=== PATIENT | female | born 1985 | race Two or more races ===

== ENCOUNTER 2017-04-27 14:22 | Emergency (ER) | payer OTHER ==
[2017-04-27 14:29] VITALS: BP 130/76; PULSE 90; TEMP 98.3; BMI 18.5
[2017-04-27] MEDS ORDERED: DIPHTH,PERTUSS(ACELL),TET 0.5 ML DISP.SYRIN IM ONE (14:29)
--- NOTE | 2017-04-27 14:29 | PDOC ---
Rapid Medical Evaluation Chief Complaint: Headache Time Seen by Provider: 04/27/17 14:27 Medical Evaluation: Allergies Allergy/AdvReac Type Severity Reaction Status Date / Time No Known Allergies Allergy Verified 04/27/17 14:25 04/27/17 14:27 The patient presents with a chief complaint of: headache, laceration to R mu-ism after hitting head on sink corner. No LOC. Does not remember date of last tetanus shot I have performed a brief in-person evaluation of this patient; Pertinent physical exam findings. 1cm lac to the R mu-ism with small hematoma I have ordered the following: Boostrix vaccine The patient will proceed to the ED for further evaluation.
[2017-04-27] MEDS ORDERED: ACETAMINOPHEN 500 MG TABLET (FP) PO ONE (15:34)
--- NOTE | 2017-04-27 15:34 | PDOC ---
History of Present Illness - General Chief Complaint: Headache Stated Complaint: HEAD INJURY Time Seen by Provider: 04/27/17 14:27 History Source: Patient Exam Limitations: No Limitations - History of Present Illness Initial Comments: 04/27/17 16:07 My chief complaint: Fall laceration to right temporal scalp area History of present illness: Patient is a 32 year old female with no significant medical history here today after tripping on the dog falling and hitting right temporal scalp area on the corner of a stove sustaining a superficial laceration to the area. Patient denies any loss of consciousness, any nausea, vomiting, dizziness, change in vision or level of alertness or any hemotympanum. Patient is unsure of her tetanus status will update today. Patient reports having tenderness around laceration site that is throbbing in nature. Timing/Duration: reports: waxing and waning Severity: Yes: moderate Associated Symptoms: reports: other (pain at site of laceration rt. temporal ) Past History - Past Medical History Allergies/Adverse Reactions: Allergies Allergy/AdvReac Type Severity Reaction Status Date / Time No Known Allergies Allergy Verified 04/27/17 14:25 Home Medications: Ambulatory Orders NK [No Known Home Medication] 04/27/17 Asthma: No Cancer: No Cardiac Disorders: No COPD: No Diabetes: No HTN: No Seizures: No Thyroid Disease: No - Reproductive History (#): 4 Para: 1 Cervical CA: No Dysfunctional Uterine Bleeding: No Ectopic : No Endometrial CA: No Polycystic Ovaries: No Therapeutic (s) & number: No Tubal Ligation: No Spontaneous : 3 - Suicide/Smoking/Psychosocial Hx Smoking History: Never smoked Have you smoked in the past 12 months: Yes Number of Cigarettes Smoked Daily: 3 If you are a former smoker, when did you quit?: 3 weeks ago Information on smoking cessation initiated: Yes 'Breaking Loose' booklet given: 04/27/17 Hx Alcohol Use: No Drug/Substance Use Hx: No Substance Use Type: None Hx Substance Use Treatment: No Review of Systems - Review of Systems Able to Perform ROS?: Yes Constitutional: No: Symptoms Reported HEENTM: No: Symptoms Reported Respiratory: No: Symptoms reported Cardiac (ROS): No: Symptoms Reported ABD/GI: No: Symptoms Reported Musculoskeletal: No: Symptoms Reported Integumentary: Yes: Other (laceration rt. temporal scalp ) Neurological: Yes: Other (tenderness around laceration site) *Physical Exam - Vital Signs Last Vital Signs Temp Pulse Resp BP Pulse Ox 98.3 F 90 18 130/76 100 04/27/17 14:27 04/27/17 14:27 04/27/17 14:27 04/27/17 14:27 04/27/17 14:27 - Physical Exam General Appearance: Yes: Appropriately Dressed HEENT: positive: EOMI, CASS, Normal ENT Inspection Neck: negative: Tender, Lymphadenopathy (R), Lymphadenopathy (L), Rigidity, Tender lateral, Tender midline Respiratory/Chest: positive: Lungs Clear, Normal Breath Sounds. negative: Chest Tender, Respiratory Distress Cardiovascular: positive: Regular Rhythm, Regular Rate, S1, S2 Integumentary: positive: Other (laceration superficial rt. temporal scalp area approx 4 cm x 0.25 cm ) Neurologic: positive: public improvement inspector II-XII NML intact, Fully Oriented, Alert, Respond to painful stimul, Responsive. negative: Numbness, Sensory Deficit Procedures - Consent Consent obtained: From Patient - Laceration/Wound Repair Right Head Wound Length: to 2.5 cm Wound Explored: clean Wound's Depth, Shape: superficial, linear Irrigated w/ Saline: Yes Betadine Prep: Yes Anesthesia: 1% Lidocaine Amount of Anesthetic (ccs): 3 Wound Repaired With: Sutures Suture Size/Type: 6:0 Number of Sutures: 6 Sterile Dressing Applied: No ED Treatment Course - Medications Given in the ED: ED Medications Discontinued Medications Generic Name Dose Route Start Last Admin Trade Name Freq PRN Reason Stop Dose Admin Diphtheria/Tetanus/Acell Pertussis 0.5 ml 04/27/17 14:29 04/27/17 15:06 Boostrix - IM 04/27/17 14:30 0.5 ml .ONCE ONE Administration Medical Decision Making - Medical Decision Making 04/27/17 16:11 Patient is a 32 year old female with no significant medical history here today after tripping on the dog falling and hitting right temporal scalp area on the corner of a stove sustaining a superficial laceration to the area. Patient denies any loss of consciousness, any nausea, vomiting, dizziness, change in vision or level of alertness or any hemotympanum. Patient is unsure of her tetanus status will update today. Patient reports having tenderness around laceration site that is throbbing in nature. RT. TEMPORAL SCALP HEAD INJURY CLOSED RT. TEMPORAL SCALP LACERATION PLAN; TDAP ORDERED IN [facility] ACETAMINOPHEN 1000 MG PO NOW 6 INTERRUPTED SUTURES RT. TEMPORAL SCALP *DC/Admit/Observation/Transfer Diagnosis at time of Disposition: Laceration of head Qualifiers: Encounter type: initial encounter Location of open wound of head: scalp Foreign body presence: without foreign body Qualified Code(s): S01.01XA - Laceration without foreign body of scalp, initial encounter Head injury Qualifiers: Encounter type: initial encounter Qualified Code(s): S09.90XA - Unspecified injury of head, initial encounter - Discharge Dispostion Disposition: HOME Condition at time of disposition: Stable - Referrals - Patient Instructions Additional Instructions: You may take acetaminophen as needed as directed by lawn technician for pain Today your tetanus diphtheria and pertussis vaccine was updated Keep wound dry today and tomorrow may wash gently with antibacterial soap and water pat dry and apply tiny amount of bacitracin ointment Return here in 6-7 days or sooner if any severe headache, nausea, vomiting, dizziness, change in vision, redness around wound or discharge from wound for suture removal Patient voiced understanding of discharge instructions and all questions were answered - Post Discharge Activity
[2017-04-27] MEDS ORDERED: ACETAMINOPHEN 500 MG TABLET (FP) ONE (15:43)
== END 2017-04-27 16:26 | disposition home or self-care (01) ==
LOC: JERFT 14:22
PROC: 0HQ0XZZ Repair Scalp Skin, External Approach (ICD-10-PCS; principal; 2017-04-27)
PROC: 3E0234Z Introduction of Serum, Toxoid and Vaccine into Muscle, Percutaneous Approach (ICD-10-PCS; 2017-04-27)
DX: S01.01XA Laceration without foreign body of scalp, initial encounter (principal); S09.90XA Unspecified injury of head, initial encounter; W01.0XXA Fall on same level from slipping, tripping and stumbling without subsequent striking against object, initial encounter; Y93.K1 Activity, walking an animal; Y92.9 Unspecified place or not applicable; Z87.891 Personal history of nicotine dependence
CPT/HCPCS: 90715; 99281-25

== ENCOUNTER 2017-08-29 00:10 | Emergency (ER) | payer OTHER ==
--- NOTE | 2017-08-29 01:25 | PDOC ---
History of Present Illness - General Chief Complaint: Vaginal Bleeding Stated Complaint: 10 WEEKS , VAG BLEEDING Time Seen by Provider: 08/29/17 01:23 History Source: Patient Exam Limitations: No Limitations - History of Present Illness Initial Comments: 08/29/17 03:22 vag bleeding and abd cramping Timing/Duration: reports: getting worse Quality: reports: moderate, throbbing Abdominal Pain Onset Location: reports: suprapubic Pain Radiation: reports: no radiation Treatment Prior to Arrive: worse with: analgesics Aggravating Factors: improves with: Movement Alleviating Factors: improves with: None Past History - Past Medical History Allergies/Adverse Reactions: Allergies Allergy/AdvReac Type Severity Reaction Status Date / Time No Known Allergies Allergy Verified 08/29/17 01:07 Home Medications: Ambulatory Orders NK [No Known Home Medication] 04/27/17 Asthma: No Cancer: No Cardiac Disorders: No COPD: No Diabetes: No HTN: No Seizures: No Thyroid Disease: No - Reproductive History (#): 4 Para: 1 Cervical CA: No Dysfunctional Uterine Bleeding: No Ectopic : No Endometrial CA: No Polycystic Ovaries: No Therapeutic (s) & number: No Tubal Ligation: No Spontaneous : 3 - Suicide/Smoking/Psychosocial Hx Smoking History: Never smoked Have you smoked in the past 12 months: No Number of Cigarettes Smoked Daily: 0 If you are a former smoker, when did you quit?: 0 Information on smoking cessation initiated: No 'Breaking Loose' booklet given: 08/29/17 Hx Alcohol Use: No Drug/Substance Use Hx: No Substance Use Type: None Hx Substance Use Treatment: No Review of Systems - Review of Systems All Other Systems: Reviewed and Negative *Physical Exam - Vital Signs Last Vital Signs Temp Pulse Resp BP Pulse Ox 98.4 F 80 18 118/72 99 08/29/17 01:08 08/29/17 01:08 08/29/17 01:08 08/29/17 01:08 08/29/17 01:08 - Physical Exam General Appearance: Yes: Nourished Respiratory/Chest: positive: Lungs Clear Cardiovascular: positive: Regular Rate Female Pelvic Exam: positive: cervical os closed, normal adnexa. negative: CMT Gastrointestinal/Abdominal: negative: Tender, Distended Lymphatic: negative: Adenopathy Musculoskeletal: positive: Normal Inspection Extremity: positive: Normal Capillary Refill Integumentary: positive: Normal Color Neurologic: positive: Fully Oriented Medical Decision Making - Medical Decision Making 08/29/17 03:24 pocus: IUP with +FH medical record review: RH+ a/p threatened ab fluids apap ob fu *DC/Admit/Observation/Transfer Diagnosis at time of Disposition: Vaginal bleeding in - Discharge Dispostion Disposition: HOME Condition at time of disposition: Good - Referrals - Patient Instructions Printed Discharge Instructions: DI for Threatened Additional Instructions: Call you OB for follow up in the morning - Post Discharge Activity
[2017-08-29] MEDS ORDERED: ACETAMINOPHEN 500 MG TABLET (FP) PO ONE (01:33)
[2017-08-29 01:39] VITALS: TEMP 98.4; BMI 19.5
[2017-08-29] MEDS ORDERED: ACETAMINOPHEN INJECTION 100 ML IVPB ONE (01:46)
[2017-08-29] MEDS ORDERED: ACETAMINOPHEN 1000 MG/100 ML VIAL (NON FORMULARY) IVPB ONE (01:50)
[2017-08-29 02:50] VITALS: BP 110/72; PULSE 88
== END 2017-08-29 02:51 | disposition home or self-care (01) ==
LOC: FER 00:10
PROC: 3E033NZ Introduction of Analgesics, Hypnotics, Sedatives into Peripheral Vein, Percutaneous Approach (ICD-10-PCS; principal; 2017-08-29)
DX: O26.891 Other specified pregnancy related conditions, first trimester (principal); Z3A.10 10 weeks gestation of pregnancy; N93.9 Abnormal uterine and vaginal bleeding, unspecified
CPT/HCPCS: 99282-25; J0131

== ENCOUNTER 2018-10-26 13:07 | Day surgery (SDC) | payer OTHER | END 2018-10-26 18:00 | disposition home or self-care (01) | LOC: JASU-SURG 13:07 ==

== ENCOUNTER 2019-01-06 13:21 | Emergency (ER) | payer OTHER ==
[2019-01-06 13:28] VITALS: BMI 21.2
[2019-01-06] MEDS ORDERED: DIPHTH,PERTUSS(ACELL),TET 0.5 ML DISP.SYRIN IM ONE (13:30)
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
[2019-01-06 15:01] LABS: BASO % 0.3 % (0-2.0); EOS % 0.8 % (0-4.5); HEMATOCRIT 39.1 % (32.4-45.2); HEMOGLOBIN 13.3 GM/dL (10.7-15.3); LYMPH % 17.9 % (8-40); MCH 31.6 pg (25.7-33.7); MCHC 34.1 g/dl (32.0-36.0); MEAN CELL VOLUME 92.5 fl (80-96); MEAN PLT VOLUME 8.1 fl (7.5-11.1); MONO % 5.5 % (3.8-10.2); NEUT % 75.5 % (42.8-82.8); PLATELET COUNT 297 K/MM3 (134-434); RBC 4.23 M/mm3 (3.60-5.2); RDW 13.7 % (11.6-15.6); WHITE BLOOD COUNT 7.7 K/mm3 (4.0-10.0)
[2019-01-06 15:27] LABS: ALBUMIN 4.1 g/dl (3.4-5.0); BILIRUBIN,TOTAL 0.5 mg/dL (0.2-1); BLOOD UREA NITROGEN 8.2 mg/dL (7-18); CALCIUM 9.2 mg/dL (8.5-10.1); CREATININE 0.8 mg/dL (0.55-1.3); POTASSIUM 3.4 mmol/L (3.5-5.1); TOT PROT 7.6 g/dl (6.4-8.2)
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
[2019-01-06] MEDS ORDERED: LIDOCAINE 1%/EPI 1:100000 (20 ML MULTI DOSE VIAL) ONE (17:45)
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
[2019-01-06] MEDS ORDERED: BACITRACIN 15 GM TUBE TOPICAL OINTMENT TP ONE (19:56)
[2019-01-06] MEDS ORDERED: BACITRACIN 0.9 GM PACKET ONE (20:11)
[2019-01-06 20:30] VITALS: BP 116/44; PULSE 65; TEMP 98.3
== END 2019-01-06 20:26 | disposition home or self-care (01) ==
LOC: JER 13:21
PROC: 0JQ50ZZ Repair Left Neck Subcutaneous Tissue and Fascia, Open Approach (ICD-10-PCS; principal; 2019-01-06)
PROC: 0JQ10ZZ Repair Face Subcutaneous Tissue and Fascia, Open Approach (ICD-10-PCS; 2019-01-06)
PROC: 3E0234Z Introduction of Serum, Toxoid and Vaccine into Muscle, Percutaneous Approach (ICD-10-PCS; 2019-01-06)
DX: S11.81XA Laceration without foreign body of other specified part of neck, initial encounter (principal); S01.112A Laceration without foreign body of left eyelid and periocular area, initial encounter; S01.412A Laceration without foreign body of left cheek and temporomandibular area, initial encounter; X99.1XXA Assault by knife, initial encounter; Y93.89 Activity, other specified; Y92.511 Restaurant or cafe as the place of occurrence of the external cause
CPT/HCPCS: 36415; 70450-TC; 70498-TC; 80053; 84703; 85025; 86850; 86900; 86901; 90715; 99284-25

== ENCOUNTER 2019-11-23 10:55 | Inpatient (IN) | payer OTHER ==
[~2019-11-23 10:55] MED LIST: ELECTROLYTE-148 SOLN 1,000 ML IV SCH
[2019-11-23] MEDS ORDERED: AMPICILLIN - 2 GM in SODIUM CHLORIDE 100 ML IVPB ONE (11:00)
[2019-11-23] MEDS ORDERED: AMPICILLIN SODIUM 2 GM VIAL ONE (11:15)
[2019-11-23] MEDS ORDERED: OXYTOCIN 20 UNITS in 0.9% NS 20 UNIT/1,000 ML INFUS.BAG IV ONE ×2 (12:04→14:58)
[2019-11-23] MEDS ORDERED: LIDOCAINE HCL 1% PRESERVATIVE FREE - 30ML VIAL ONE (12:04)
[2019-11-23] MEDS ORDERED: ELECTROLYTE-148 SOLN 1,000 ML IV SCH (12:15)
--- NOTE | 2019-11-23 12:18 | HP ---
Past Medical History - Admission Chief Complaint: Rupture of membrane History of Present Illness: 34 yo @ 39 weeks gestation, EDC 11/29/19, presents to L&D c/o leakage of fluid starting a 7:45am. She also admits to contractions pain. Upon admission, there was evidence fluid leakage and cervix was 6-7cm dilated. Her last was complicated by . History Source: Patient Limitations to Obtaining History: No Limitations - Past Medical History ...: 9 ...Para: 3 ...EDC by Sara: 11/29/19 Additional Medical History: n/a - Past Surgical History Past Surgical History: Yes: None Hx Myomectomy: No Hx Transabdominal Cerclage: No - Smoking History Smoking history: Never smoked Have you smoked in the past 12 months: Yes Aproximately how many cigarettes per day: 3 If you are a former smoker, when did you quit?: 0 - Alcohol/Substance Use Hx Alcohol Use: No History of Substance Use: reports: None - Social History Usual Living Arrangement: Yes: With Significant Other ADL: Independent History of Recent Travel: No Home Medications - Allergies Allergies/Adverse Reactions: Allergies Allergy/AdvReac Type Severity Reaction Status Date / Time No Known Allergies Allergy Verified 08/11/19 17:34 - Home Medications Home Medications: Ambulatory Orders Pnv No.95/Ferrous Fum/Folic AC [ Vitamin Tablet] 1 tab PO DAILY 08/11/19 Family Medical History Family History: Unremarkable Review of Systems - Review of Systems Constitutional: reports: No Symptoms Eyes: reports: No Symptoms HENT: reports: No Symptoms Neck: reports: No Symptoms Cardiovascular: reports: No Symptoms Respiratory: reports: No Symptoms Gastrointestinal: reports: No Symptoms Genitourinary: reports: Pain, Other (Leaking of amniotic fluid) Breasts: reports: No Symptoms Reported Musculoskeletal: reports: No Symptoms Neurological: reports: No Symptoms Psychiatric: reports: No Symptoms Pain Intensity: 4 Physical Exam - Maternity Constitutional: Yes: No Distress Eyes: Yes: Conjunctiva Clear HENT: Yes: Atraumatic Neck: Yes: Supple Cardiovascular: Yes: Regular Rate and Rhythm Lungs: Clear to auscultation Breast(s): Yes: WNL - Abdominal Exam/OB Number of Fetuses: Single Presentation: Vertex Contractions: Yes Regularity: Irregular Intensity: Mild/Mod Category: I - Vaginal Exam/OB Vaginal Bleeding: No Dilatation (cm): 7 Effacement (%): 80 Amniotic Membrane Status: Leaking Amniotic Fluid: Yes: Clear Presentation: Vertex/Position Station: -1 - Physical Exam Musculoskeletal: Yes: WNL ...Motor Strength: WNL Psychiatric: Yes: Alert, Oriented Problem List - Problems (1) 39 weeks gestation of Problems reviewed: Yes Code(s): Z3A.39 - 39 WEEKS GESTATION OF (2) Rupture of amniotic sac less than 24 hours prior to the onset of labor Problems reviewed: Yes Code(s): O42.90 - RADHA ROM, 7TH0 BETW RUPT & ONST LABR, UNSP WEEKS OF GEST Qualifiers: PROM onset of labor timing: onset of labor within 24 hours of rupture PROM gestational age: full term Qualified Code(s): O42.02 - Full-term premature rupture of membranes, onset of labor within 24 hours of rupture Assessment/Plan 39 weeks gestation SROM Admit to L&D Analgesia as needed Anticipate
[2019-11-23 12:20] VITALS: BMI 30.9
[2019-11-23] MEDS ORDERED: BUTORPHANOL TARTRATE 2 MG/ML VIAL IM PRN (12:24)
[2019-11-23] MEDS ORDERED: PROMETHAZINE HCL 25 MG/1 ML VIAL IVPB PRN (12:25)
[2019-11-23 12:27] LABS: BASO % 0.2 % (0-2.0); EOS % 0.6 % (0-4.5); HEMATOCRIT 37.6 % (32.4-45.2); HEMOGLOBIN 12.5 GM/dL (10.7-15.3); LYMPH % 15.8 % (8-40); MCH 31.9 pg (25.7-33.7); MCHC 33.2 g/dl (32.0-36.0); MEAN CELL VOLUME 96.1 fl (80-96); MEAN PLT VOLUME 8.1 fl (7.5-11.1); MONO % 6.7 % (3.8-10.2); NEUT % 76.7 % (42.8-82.8); PLATELET COUNT 217 K/MM3 (134-434); RBC 3.92 M/mm3 (3.60-5.2); RDW 13.3 % (11.6-15.6); WHITE BLOOD COUNT 10.3 K/mm3 (4.0-10.0)
[2019-11-23 12:30] LABS: INR 0.97 (0.83-1.09); PROTHROMBIN TIME (PATIENT) 11.5 SEC (9.7-13.0)
[2019-11-23] MEDS ORDERED: OXYTOCIN 30 UNITS in 0.9% NS 30 UNIT/500 ML INFUS.BAG IVPB SCH (12:30)
[2019-11-23] MEDS ORDERED: PROMETHAZINE HCL 25 MG/1 ML VIAL ONE (12:30)
[2019-11-23] MEDS ORDERED: BUTORPHANOL TARTRATE 1 MG/ML VIAL ONE ×2 (12:30)
[2019-11-23] MEDS ORDERED: OXYTOCIN 30 UNITS in 0.9% NS 30 UNIT/500 ML INFUS.BAG IVPB ONE (12:31)
[2019-11-23 12:33] LABS: ACTIVATED PTT 29.5 SECONDS (25.2-36.5)
[2019-11-23 12:54] LABS: BLOOD UREA NITROGEN 6.5 mg/dL (7-18); CALCIUM 8.4 mg/dL (8.5-10.1); CREATININE 0.5 mg/dL (0.55-1.3); POTASSIUM 3.5 mmol/L (3.5-5.1)
[2019-11-23] MEDS: OXYTOCIN 20 UNITS in 0.9% NS 20 UNIT/1,000 ML INFUS.BAG IV SCH ×2 (13:15→14:30)
[2019-11-23] MEDS ORDERED: BENZOCAINE 28 GM HEMORRHOIDAL OINTMENT TP PRN (13:17)
[2019-11-23] MEDS ORDERED: BISACODYL 10 MG SUPP.RECT RC PRN (13:17)
[2019-11-23] MEDS ORDERED: BENZOCAINE 20% 57 GM BOTTLE TP PRN (13:17)
[2019-11-23] MEDS ORDERED: WITCH HAZEL 50% (TUCKS) 40 PAD/JAR PAD TP PRN (13:17)
[2019-11-23] MEDS ORDERED: METHYLERGONOVINE MALEATE 0.2 MG/1 ML AMP IM PRN (13:17)
--- NOTE | 2019-11-23 13:21 | PN ---
Delivery - Delivery Vaginal Delivery: Spontaneous Episiotomy/Laceration: None EBL (cc): 300 Delivery, Single - Feeding Plan Initial Plan: Elected not to breastfeed exclusively throughout hospitalization Remarks - Remarks Remarks: Normal spontaneous vaginal delivery of a live infant girl over intact perineum. Nose / Oropharynx suctioned @ perineum. Cord clamped and cut. Baby handed to mother then to nurse. Placenta expelled spontaneously intact. Mother in stable condition.
[2019-11-23] MEDS ORDERED: IBUPROFEN 600 MG TABLET (FP) PO ONE ×2 (13:41→17:16)
[2019-11-23] MEDS: IBUPROFEN 600 MG TABLET (FP) PO PRN ×2 (13:45→17:46)
[2019-11-23] MEDS ORDERED: AMPICILLIN - 1 GM in SODIUM CHLORIDE 100 ML IVPB SCH (15:00)
[2019-11-23] MEDS ORDERED: CARBOPROST TROMETHAMINE 250 MCG/ML AMPUL IM ONE (15:36)
--- NOTE | 2019-11-23 15:36 | PD.OB.PROG ---
Past Medical History - Primary Care Physician PCP:: Esther Flynn Documenting Provider Type: Laborist - Admission Chief Complaint: Bleeding excessive 2 hours PP. History of Present Illness: Called to pt who had uneventful delivery at 1305 hrs. Placenta was complete. Bleeding with clots. 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 Cardio/Vascular: Denies/None Pulmonary: Denies/None Gastrointestinal: Denies/None Hepatobiliary: Denies/None Renal/: Denies/None ...: 9 ...Para: 3 ...Term: 3 ...: 0 ...Spon : 5 ...Induced : 0 ...Living Children: 2 ...Multiple Gestation: 0 ...EDC by Sono: 11/29/19 Heme/Onc: Denies/None Infectious Disease: Denies/None Psych: Denies/None Musculoskeletal: Denies/None Rheumatology: Denies/None ENT: Denies/None Endocrine: Denies/None Dermatology: Denies/None Additional Medical History: n/a - Past Surgical History Past Surgical History: Yes: None - Smoking History Smoking history: Never smoked Have you smoked in the past 12 months: Yes Aproximately how many cigarettes per day: 3 If you are a former smoker, when did you quit?: 0 - Alcohol/Substance Use Hx Alcohol Use: No History of Substance Use: reports: None - Social History ADL: Independent History of Recent Travel: No Review of Systems - Review of Systems Constitutional: reports: No Symptoms Eyes: reports: No Symptoms HENT: reports: No Symptoms Neck: reports: No Symptoms Cardiovascular: reports: No Symptoms Respiratory: reports: No Symptoms Gastrointestinal: reports: No Symptoms Genitourinary: reports: No Symptoms Breasts: reports: No Symptoms Reported Musculoskeletal: reports: No Symptoms Integumentary: reports: No Symptoms Neurological: reports: No Symptoms Endocrine: reports: No Symptoms Hematology/Lymphatic: reports: No Symptoms Psychiatric: reports: No Symptoms Physical Exam - Obstetrical Vital Signs: Vital Signs Temperature 98.4 F 11/23/19 13:30 Pulse Rate 68 11/23/19 14:45 Respiratory Rate 18 11/23/19 14:45 Blood Pressure 123/67 11/23/19 14:45 O2 Sat by Pulse Oximetry (%) 100 11/23/19 14:45 Constitutional: Yes: Well Nourished, No Distress, Calm Eyes: Yes: WNL, Conjunctiva Clear, EOM Intact HENT: Yes: WNL, Atraumatic, Normocephalic Neck: Yes: WNL, Supple, Trachea Midline Cardiovascular: Yes: WNL, Regular Rate and Rhythm Lungs: Clear to auscultation Breast(s): Yes: WNL - Abdominal Exam/OB Fundal Height: 18 - Vaginal Exam/OB Vaginal Exam Deferred: Yes Vaginal Bleeding: No, Light, Old Blood - Physical Exam Musculoskeletal: Yes: WNL Extremities: Yes: WNL Integumentary: Yes: WNL ...Motor Strength: WNL Psychiatric: Yes: WNL - Labs Lab Results: CBC, BMP 11/23/19 11:40 11/23/19 11:15 Problem List - Problems (1) PPH ( hemorrhage) Code(s): O72.1 - OTHER IMMEDIATE HEMORRHAGE Assessment/Plan Patient examined. Already given IV Pitocin and methergine IM. Examined. Stover is out. Uterus well contracted. About 100 - 150 cc of clots removed from vagina and cervix. Very uncomfortable. Uterus massaged. Hemabate given IM. No active bleeding. No lacerations or injuries detected.
[2019-11-23] MEDS ORDERED: MEPERIDINE HCL 50 MG/ML VIAL IM ONE (16:10)
[2019-11-23] MEDS ORDERED: ACETAMINOPHEN 325 MG TABLET (FP) ONE (16:31)
[2019-11-23] MEDS: ACETAMINOPHEN 325 MG TABLET (FP) PO PRN (16:34)
[2019-11-23] MEDS ORDERED: oxyCODONE HCL 5 MG TABLET PO ONE (17:59)
[2019-11-23 19:47] LABS: BASO % 0.1 % (0-2.0); EOS % 0.4 % (0-4.5); HEMATOCRIT 39.1 % (32.4-45.2); HEMOGLOBIN 13.1 GM/dL (10.7-15.3); LYMPH % 8.3 % (8-40); MCH 32.5 pg (25.7-33.7); MCHC 33.5 g/dl (32.0-36.0); MEAN CELL VOLUME 96.9 fl (80-96); MEAN PLT VOLUME 8.5 fl (7.5-11.1); MONO % 5.8 % (3.8-10.2); NEUT % 85.4 % (42.8-82.8); PLATELET COUNT 213 K/MM3 (134-434); RBC 4.03 M/mm3 (3.60-5.2); RDW 13.5 % (11.6-15.6); WHITE BLOOD COUNT 15.7 K/mm3 (4.0-10.0)
[2019-11-23] MEDS: FERROUS SO4 325 MG TABLET (FP) PO SCH (23:00)
[2019-11-24] MEDS: ACETAMINOPHEN 325 MG TABLET (FP) PO PRN ×3 (05:45→18:45)
[2019-11-24] MEDS: IBUPROFEN 600 MG TABLET (FP) PO PRN ×3 (05:46→18:44)
[2019-11-24 08:36] LABS: BASO % 0.3 % (0-2.0); EOS % 1.7 % (0-4.5); HEMATOCRIT 34.6 % (32.4-45.2); HEMOGLOBIN 11.7 GM/dL (10.7-15.3); LYMPH % 14.7 % (8-40); MCHC 33.7 g/dl (32.0-36.0); MEAN CELL VOLUME 97.8 fl (80-96); MEAN PLT VOLUME 8.3 fl (7.5-11.1); MONO % 9.2 % (3.8-10.2); NEUT % 74.1 % (42.8-82.8); PLATELET COUNT 177 K/MM3 (134-434); RBC 3.54 M/mm3 (3.60-5.2); RDW 13.5 % (11.6-15.6); WHITE BLOOD COUNT 10.7 K/mm3 (4.0-10.0)
[2019-11-24] MEDS: FERROUS SO4 325 MG TABLET (FP) PO SCH ×2 (09:16→21:42)
[2019-11-24] MEDS: PRENATAL VITAMINS W/ FOLIC ACID TABLET (FP) PO SCH (09:17)
--- NOTE | 2019-11-24 09:27 | PN ---
Post Progress Note - Subjective Subjective: 34 yo Para 4 status post vaginal delivery complicated by hemorrhage, seen and evaluated. She denies any dizziness but c/o generalized body ache. Post Day: 1 Type of Delivery: Vital Signs: Vital Signs Temperature 97.9 F 11/24/19 05:00 Pulse Rate 74 11/24/19 05:00 Respiratory Rate 20 11/24/19 05:00 Blood Pressure 107/58 L 11/24/19 05:00 O2 Sat by Pulse Oximetry (%) 100 11/23/19 17:30 Uterus: Yes: Fundus Firm Abdomen/GI: Yes: Abdomen soft, Tolerating PO Lochia: Yes: Rubra Lochia, amount: Moderate Extremities: Yes: Calves non-tender Perineum: Yes: Intact Activity: Ambulating - Labs Labs: CBC WBC 10.7 K/mm3 (4.0-10.0) H 11/24/19 08:00 RBC 3.54 M/mm3 (3.60-5.2) L 11/24/19 08:00 Hgb 11.7 GM/dL (10.7-15.3) 11/24/19 08:00 Hct 34.6 % (32.4-45.2) 11/24/19 08:00 MCV 97.8 fl (80-96) H 11/24/19 08:00 MCH 33.0 pg (25.7-33.7) 11/24/19 08:00 MCHC 33.7 g/dl (32.0-36.0) 11/24/19 08:00 RDW 13.5 % (11.6-15.6) 11/24/19 08:00 Plt Count 177 K/MM3 (134-434) 11/24/19 08:00 MPV 8.3 fl (7.5-11.1) 11/24/19 08:00 Absolute Neuts (auto) 7.9 K/mm3 (1.5-8.0) 11/24/19 08:00 Neutrophils % 74.1 % (42.8-82.8) 11/24/19 08:00 Lymphocytes % 14.7 % (8-40) D 11/24/19 08:00 Monocytes % 9.2 % (3.8-10.2) 11/24/19 08:00 Eosinophils % 1.7 % (0-4.5) D 11/24/19 08:00 Basophils % 0.3 % (0-2.0) 11/24/19 08:00 Nucleated RBC % 0 % (0-0) 11/24/19 08:00 Problem List - Problems (1) 39 weeks gestation of Code(s): Z3A.39 - 39 WEEKS GESTATION OF (2) Rupture of amniotic sac less than 24 hours prior to the onset of labor Code(s): O42.90 - RADHA ROM, 7TH0 BETW RUPT & ONST LABR, UNSP WEEKS OF GEST Qualifiers: PROM onset of labor timing: onset of labor within 24 hours of rupture PROM gestational age: full term Qualified Code(s): O42.02 - Full-term premature rup ture of membranes, onset of labor within 24 hours of rupture (3) Status post normal vaginal delivery Code(s): [id number] - Assessment/Plan Status post vaginal delivery Analgesia as needed Continue care
[2019-11-24] MEDS ORDERED: DIPHTH,PERTUSS(ACELL),TET 0.5 ML DISP.SYRIN IM ONE (10:00)
[2019-11-24 12:42] LABS: POC NITRAZINE NEG
[2019-11-24 21:20] VITALS: PULSE 80
[2019-11-24] MEDS ORDERED: SENNOSIDES/DOCUSATE COMBO (SENNA PLUS) TABLET (UD) PO PRN (22:00)
[2019-11-25] MEDS: IBUPROFEN 600 MG TABLET (FP) PO PRN (08:41)
[2019-11-25] MEDS: ACETAMINOPHEN 325 MG TABLET (FP) PO PRN (08:41)
[2019-11-25] MEDS: FERROUS SO4 325 MG TABLET (FP) PO SCH (10:23)
[2019-11-25] MEDS: PRENATAL VITAMINS W/ FOLIC ACID TABLET (FP) PO SCH (10:23)
[2019-11-25 11:14] VITALS: BP 115/74; TEMP 97.9
--- NOTE | 2019-11-25 15:02 | DS ---
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: Vital Signs Temperature 97.9 F 11/25/19 09:00 Pulse Rate 80 11/25/19 09:00 Respiratory Rate 20 11/25/19 09:00 Blood Pressure 115/74 11/25/19 09:00 O2 Sat by Pulse Oximetry (%) 100 11/23/19 17:30 Constitutional: Yes: No Distress Eyes: Yes: Conjunctiva Clear HENT: Yes: Atraumatic Neck: Yes: Supple Cardiovascular: Yes: Regular Rate and Rhythm Respiratory: Yes: Regular Gastrointestinal: Yes: Normal Bowel Sounds External Genitalia: Yes: Normal Vaginal Exam: Yes: Bleeding Cervix: Yes: Bleeding ....Post : Yes: Uterus firm, Moderate lochia serosa Musculoskeletal: Yes: WNL Extremities: Yes: WNL Neurological: Yes: Alert, Oriented ...Motor Strength: WNL Psychiatric: Yes: Alert, Oriented Labs: CBC, BMP 11/24/19 08:00 11/23/19 11:15 Delivery - Delivery Vaginal Delivery: Spontaneous Type of Anesthesia: None Episiotomy/Laceration: None EBL (cc): 300 Delivery, Single - Stages of Labor Date 1st Stage Initiatied: 11/23/19 Time 1st Stage Initiated: 08:00 Date 2nd Stage Initiated: 11/23/19 Time 2nd Stage Initiated: 12:55 Date of Delivery: 11/23/19 Time of Delivery: 13:05 Time Placenta Delivered: 13:08 - 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: No Gender: Female Weight: 8 lb 6 oz Position: Right, OA Total Hours ROM (Hrs/Mins): [id number] - 1 Minute Total Score: 9 5 Minutes Total Score: 9 - Feeding Plan Initial Plan: Elected not to breastfeed exclusively throughout hospitalization Discharge Summary Problems reviewed: Yes Reason For Visit: LABOR Current Active Problems 39 weeks gestation of (Acute) PPH ( hemorrhage) (Acute) Rupture of amniotic sac less than 24 hours prior to the onset of labor (Acute) Procedures: Principal: Nomal spontaneous vaginal delivery Hospital Course: Patient received care for hemorrhage but no blood transfusion was required. Health Concerns: None Plan of Treatment: Analgesia F/U with MD in 6 weeks Goals: Resume regular activities in 4-6 weeks Condition: Good - Instructions Diet, Activity, Other Instructions: Regular diet No douching, no sexual intercourse x 6 weeks F/U with MD in 6 weeks Referrals: Esther Flynn MD [Staff Physician] - Disposition: HOME - Home Medications Comprehensive Discharge Medication List: Ambulatory Orders Pnv No.95/Ferrous Fum/Folic AC [ Vitamin Tablet] 1 tab PO DAILY 08/11/19
== END 2019-11-25 16:00 | disposition home or self-care (01) | DRG 560 ==
LOC: JLDR 10:55 → J3W 20:28
PROVIDERS: ADMIT Obstetrics & Gynecology; ATTEND Obstetrics & Gynecology
PROC: 10E0XZZ Delivery of Products of Conception, External Approach (ICD-10-PCS; principal; 2019-11-23)
DX: O42.02 Full-term premature rupture of membranes, onset of labor within 24 hours of rupture (principal); Z3A.39 39 weeks gestation of pregnancy; Z37.0 Single live birth; Z87.59 Personal history of other complications of pregnancy, childbirth and the puerperium; O72.1 Other immediate postpartum hemorrhage
CPT/HCPCS: 36415; 59409; 80048; 83986-QW; 85025; 85362; 85384; 85610; 85730; 86780; 86850; 86900; 86901; 87389; 90715; U0003

== ENCOUNTER 2021-02-16 17:37 | Emergency (ER) | payer OTHER ==
[2021-02-16 17:54] VITALS: BP 101/46; PULSE 85; TEMP 98.4; BMI 21.4
[2021-02-16 18:57] LABS: EPI CELLS 36 /uL (0-25.1); HYALINE CASTS 3 /uL (0-3.1); PH,URINE 6.5 (5.0-8.0); URINE APPEARANCE CLOUDY; URINE BACTERIA 914 /uL (0-1359); URINE BILIRUBIN NEGATIVE (NEGATIVE); URINE COLOR YELLOW; URINE GLUCOSE (UA) NEGATIVE (NEGATIVE); URINE KETONE TRACE (NEGATIVE); URINE LEUK ESTERASE TRACE (NEGATIVE); URINE NITRITE NEGATIVE (NEGATIVE); URINE PROTEIN TRACE (NEGATIVE); URINE RBC 13 /uL (0-23.9); URINE WBC 30 /uL (0-25.8)
[2021-02-16] MEDS ORDERED: ACETAMINOPHEN 325 MG TABLET (FP) ONE (19:57)
[2021-02-16] MEDS ORDERED: ACETAMINOPHEN 325 MG TABLET (FP) PO ONE (20:04)
== END 2021-02-16 21:32 | disposition home or self-care (01) ==
LOC: JER 17:37
DX: O26.852 Spotting complicating pregnancy, second trimester (principal); Z3A.14 14 weeks gestation of pregnancy
CPT/HCPCS: 36415; 76801-TC; 81003; 84702; 84703; 87086; 99284-25

== ENCOUNTER 2021-06-05 12:44 | Emergency (ER) | payer OTHER ==
[2021-06-05 13:00] VITALS: TEMP 98.1; BMI 26.5
[2021-06-05] MEDS ORDERED: SODIUM CHLORIDE 1,000 ML IV STA (14:00)
[2021-06-05] MEDS ORDERED: ACETAMINOPHEN 1000 MG/100 ML BAG IVPB ONE (14:00)
[2021-06-05] MEDS ORDERED: ONDANSETRON 4 MG/2 ML VIAL IVPUSH ONE (14:09)
[2021-06-05] MEDS ORDERED: ACETAMINOPHEN INJECTION 100 ML IVPB ONE (14:20)
[2021-06-05] MEDS ORDERED: ONDANSETRON 4 MG/2 ML VIAL ONE (14:31)
[2021-06-05 14:56] LABS: BASO % 0.2 % (0-2.0); EOS % 0.5 % (0-4.5); HEMATOCRIT 39.3 % (32.4-45.2); HEMOGLOBIN 12.9 GM/dL (10.7-15.3); LYMPH % 6.4 % (8-40); MCH 31.4 pg (25.7-33.7); MCHC 32.8 g/dl (32.0-36.0); MEAN CELL VOLUME 95.6 fl (80-96); MEAN PLT VOLUME 7.6 fl (7.5-11.1); NEUT % 86.9 % (42.8-82.8); PLATELET COUNT 301 10^3/uL (134-434); RBC 4.11 M/mm3 (3.60-5.2); RDW 12.9 % (11.6-15.6); WHITE BLOOD COUNT 13.1 K/mm3 (4.0-10.0)
[2021-06-05] MEDS ORDERED: LIDOCAINE 5% TOPICAL PATCH ONE (15:04)
[2021-06-05 15:24] LABS: CHLORIDE 105 mmol/L (98-107); SODIUM 138 mmol/L (136-145)
[2021-06-05 15:25] LABS: BLOOD UREA NITROGEN 5.9 mg/dL (7-18); CALCIUM 8.1 mg/dL (8.5-10.1)
[2021-06-05 15:27] LABS: ANION GAP 11 MMOL/L (8-16); CO2 23 mmol/L (21-32); GLUCOSE,RANDOM 71 mg/dL (74-106); LIPASE 140 U/L (73-393)
[2021-06-05 15:29] LABS: CREATININE 0.4 mg/dL (0.55-1.3)
[2021-06-05 15:30] LABS: BILIRUBIN,TOTAL 0.7 mg/dL (0.2-1); SGOT/AST 14 U/L (15-37); SGPT/ALT 16 U/L (13-61); TOT PROT 6.9 g/dl (6.4-8.2)
[2021-06-05 15:31] LABS: ALK PHOS 79 U/L (45-117)
[2021-06-05] MEDS ORDERED: DEXTROSE 5%-0.45% SALINE 1,000 ML IV SCH ×2 (16:15→19:30)
[2021-06-05] MEDS ORDERED: FAMOTIDINE 20 MG/50 ML IVPB 20 MG/50 ML MG IVPB ONE ×2 (16:16→16:56)
[2021-06-05 17:53] LABS: PH,URINE 6.5 (5.0-8.0); URINE APPEARANCE CLEAR; URINE BILIRUBIN NEGATIVE (NEGATIVE); URINE COLOR YELLOW; URINE GLUCOSE (UA) NEGATIVE (NEGATIVE); URINE KETONE 3+ (NEGATIVE); URINE LEUK ESTERASE NEGATIVE (NEGATIVE); URINE NITRITE NEGATIVE (NEGATIVE); URINE PROTEIN NEGATIVE (NEGATIVE); URINE UROBILINOGEN 0.2 mg/dL (0.2-1.0)
[2021-06-05] MEDS ORDERED: ACETAMINOPHEN 325 MG TABLET (FP) PO ONE (20:53)
[2021-06-05] MEDS ORDERED: ACETAMINOPHEN 500 MG TABLET (FP) ONE (20:59)
[2021-06-05 21:12] VITALS: BP 104/50; PULSE 84
== END 2021-06-05 21:13 | disposition home or self-care (01) ==
LOC: JER 12:44
PROC: 3E033NZ Introduction of Analgesics, Hypnotics, Sedatives into Peripheral Vein, Percutaneous Approach (ICD-10-PCS; principal; 2021-06-05)
PROC: 3E033GC Introduction of Other Therapeutic Substance into Peripheral Vein, Percutaneous Approach (ICD-10-PCS; 2021-06-05)
PROC: 3E0337Z Introduction of Electrolytic and Water Balance Substance into Peripheral Vein, Percutaneous Approach (ICD-10-PCS; 2021-06-05)
PROC: 3E033GC Introduction of Other Therapeutic Substance into Peripheral Vein, Percutaneous Approach (ICD-10-PCS; 2021-06-05)
DX: O26.893 Other specified pregnancy related conditions, third trimester (principal); R10.9 Unspecified abdominal pain; Z3A.29 29 weeks gestation of pregnancy
CPT/HCPCS: 36415; 76705-TC; 76801-TC; 80053; 81003; 82550; 83690; 84484; 85025; 87086; 99284-25; C9803; J0131; U0003; U0005

== ENCOUNTER 2022-03-25 04:43 | Day surgery (SDC) | payer OTHER ==
[2022-03-24 16:40] VITALS: BMI 22.6
[2022-03-25] MEDS ORDERED: SIMETHICONE 40 MG/0.6 ML BOTTLE ONE (14:27)
[2022-03-25 15:17] VITALS: TEMP 97
[2022-03-25 15:46] VITALS: RESP 15
[2022-03-25 16:04] VITALS: BP 112/80; PULSE 77
== END 2022-03-25 16:20 | disposition home or self-care (01) ==
LOC: JASU-ENDO 04:43
PROVIDERS: ATTEND Internal Medicine Gastroenterology
PROC: 0DBL8ZX Excision of Transverse Colon, Via Natural or Artificial Opening Endoscopic, Diagnostic (ICD-10-PCS; principal; 2022-03-25 11:45)
DX: K63.5 Polyp of colon (principal); K64.8 Other hemorrhoids
CPT/HCPCS: 81025; 88305-TC

== ENCOUNTER 2022-04-01 04:39 | Day surgery (SDC) | payer OTHER ==
[2022-03-31 14:07] VITALS: BMI 22.6
[2022-04-01 12:25] VITALS: TEMP 97.3
[2022-04-01 13:00] VITALS: RESP 20
[2022-04-01 13:11] VITALS: BP 106/52; PULSE 63
== END 2022-04-01 13:29 | disposition home or self-care (01) ==
LOC: JASU-ENDO 04:39
PROVIDERS: ATTEND Internal Medicine Gastroenterology
PROC: 0DB78ZX Excision of Stomach, Pylorus, Via Natural or Artificial Opening Endoscopic, Diagnostic (ICD-10-PCS; 2022-04-01)
PROC: 0DB68ZX Excision of Stomach, Via Natural or Artificial Opening Endoscopic, Diagnostic (ICD-10-PCS; 2022-04-01)
PROC: 0DB98ZX Excision of Duodenum, Via Natural or Artificial Opening Endoscopic, Diagnostic (ICD-10-PCS; principal; 2022-04-01 11:15)
DX: K29.50 Unspecified chronic gastritis without bleeding (principal)
CPT/HCPCS: 81025; 88305-TC; 88342-TC